=== PATIENT | female | born 1975 | race African-American/Black ===

== ENCOUNTER → 2018-01-23 | Day surgery (SDC) | payer OTHER ==
--- NOTE | 2018-01-24 06:52 | OP ---
DATE OF OPERATION: 01/23/2018 PREOPERATIVE DIAGNOSIS: Left axillary adenopathy. POSTOPERATIVE DIAGNOSIS: Left axillary adenopathy. PROCEDURE: Left axillary ultrasound-guided lymph node biopsy with clip placement. ANESTHESIA: Local. ATTENDING SURGEON: Lewis Goodson MD ESTIMATED BLOOD LOSS: Minimal. COMPLICATIONS: None. PROCEDURE: Patient was made aware of the risks and benefits of the procedure and consented. She was placed in the supine position under sterile conditions with 1% lidocaine for local anesthesia. A small marleny was made in the skin. Using a 13-gauge suction biopsy device via a lateral approach under ultrasound guidance multiple cores were obtained and submitted to Pathology. Likewise under ultrasound guidance a HydroMARK barrel clip was placed into the biopsy region. Well tolerated by patient. Steri-Strip and a sterile bandage were applied. Will contact her with results. LEWIS GOODSON M.D. [id number]
--- NOTE | 2018-01-30 09:49 | PATH ---
Surgical Pathology Report Patient Name: MIKEL BRAUN [facility]. Rec. #: [id number] /Age/Gender: 1975 (Age: 42) / F Account: [id number] Location: [facility] Taken: 01/23/2018 Received: 01/23/2018 Reported: 01/30/2018 Physicians: Leah Pettit M.D. Specimen(s) Received LEFT AXILLARY NODE CORE BIOPSY Clinical History Non palpable lesion Final Diagnosis AXILLARY LYMPH NODE, LEFT, CORE BIOPSY: FRAGMENTS OF LYMPH NODE WITH MILD FOLLICULAR HYPERPLASIA. NO DETECTABLE INVOLVEMENT BY LYMPHOMA. Comments: The specimen consists of needle core shaped fragments of lymphoid tissue; variable in size follicles with germinal center formation are present. Significant cytologic atypia is not seen. Immunostains demonstrate normal distribution of B-cells and T-cells; aberrant immunoprofiles are not seen. Flow cytometry immunophenotyping, performed on the concurrent sample ([id number]) did not detect clonal B cell populations or T-cell immunophenotypic aberrancies. This case was sent to Dr. Edwin Benavides from [facility], [place], [place] ([id number]) the diagnosis above reflects his opinion. Immunostains performed: CD20...B-cells positive PAX-5...B-cells positive CD3...T-cells positive CD5...T-cells positive CD10..Germinal centers positive BCL-6...Germinal centers positive BCL-2...Germinal centers negative BCL-1..Negative CD21...Follicular dendritic and subset of B-cells positive CD23..Follcular dendritic and subset of B-cells positive CD30...Scattered positive cells (probably immunoblasts) AE1/AE3...Negative MUM-1..Plasma and subset of B-cells positive ELIAN..Negative [place] (FREDDY)..Subset of plasma cells positive Lambda (FREDDY)..Subset of plasma cells positive. See [facility] reports for details ([id number] and [id number]). Electronically Signed Suzanne Diez M.D. Gross Description Received fresh labeled "left axillary lymph node biopsy," are 6 he-yellow, cylindrical portions of fibroadipose tissue ranging from 0.5-1.8 centimeters in length and averaging 0.1 cm in diameter. Data Processing Supervisor portions are submitted in RPMI solution for flow cytometry. The remainder of the specimen is entirely submitted in one cassette. Total formalin fixation time: Approximately 6 hours. 01/23/201801/23/2018
== END | disposition home or self-care (01) ==
LOC: FRADUS-SUR 10:21
PROVIDERS: ATTEND Surgery
PROC: 07B53ZX Excision of Right Axillary Lymphatic, Percutaneous Approach, Diagnostic (ICD-10-PCS; principal; 2018-01-23)
PROC: BH47ZZZ Ultrasonography of Upper Extremity (ICD-10-PCS; 2018-01-23)
DX: L73.8 Other specified follicular disorders (principal); R59.9 Enlarged lymph nodes, unspecified
CPT/HCPCS: 38505; 76942-TC; 87899; 88305-TC; A4648

== ENCOUNTER → 2021-07-18 | Day surgery (SDC) | payer OTHER | END | disposition home or self-care (01) | LOC: JRADUS-SUR 11:31 | PROVIDERS: ATTEND Obstetrics & Gynecology | PROC: 07D63ZX Extraction of Left Axillary Lymphatic, Percutaneous Approach, Diagnostic (ICD-10-PCS; principal; 2021-07-18) | DX: R59.0 Localized enlarged lymph nodes (principal) | CPT/HCPCS: 19083; 87899; 88305-TC; 88342-TC; A4648 ==